=== PATIENT | female | born 1950 | race Caucasian/White ===

== ENCOUNTER 2016-10-26 08:49 | Day surgery (SDC) | payer BC ==
[~2016-10-26 08:49] MED LIST: RINGER'S SOLUTION,LACTATED 1,000 ML IV PRN
--- NOTE | 2016-10-26 10:49 | OR ---
Operative Report - Dictated Report Narrative: Date: 10/26/2016 Preop diagnosis: Screening colonoscopy Postop diagnosis: Sigmoid diverticulosis Procedure: Total colonoscopy Staff surgeon: Mode Gonzales MD Aneshtesia: JACQUE per FLA[employer] EBL: none Specimens: none Complications: none apparent Description: After informed consent and appropriate sedation the patient was placed in the left lateral decubitus position. A flexible fiberoptic video colonoscope was introduced and advanced under direct vision without difficulty to the mid- ascending colon. The usual landmarks were identified. Preparation was excellent and excellent views were obtained. The findings were of a normal cecum, ascending colon, hepatic flexure, transverse colon, splenic flexure, descending colon, sigmoid colon except for moderate diverticuli, rectum and retroflex view. The mucosal color, vasculature and texture were normal throughout. no suspicious masses were seen. The patient tolerated the procedure well without apparent complications and was discharged from the endoscopy suite in stable condition.
[2016-10-26 12:40] VITALS: BP 132/71
== END 2016-10-26 08:50 | disposition home or self-care (01) ==
LOC: AMB 08:49
PROVIDERS: ATTEND Specialist
PROC: 0DJD8ZZ Inspection of Lower Intestinal Tract, Via Natural or Artificial Opening Endoscopic (ICD-10-PCS; principal; 2016-10-26 09:50)
DX: Z12.11 Encounter for screening for malignant neoplasm of colon (principal); E78.5 Hyperlipidemia, unspecified; J45.30 Mild persistent asthma, uncomplicated; Z68.24 Body mass index [BMI] 24.0-24.9, adult

== ENCOUNTER 2016-12-13 11:30 | Day surgery (SDC) | payer BC ==
[~2016-12-13 11:30] MED LIST changes: +ACETAMINOPHEN 325 MG TABLET PO PRN; +ACETYLCHOLINE CHLORIDE 20 DROP KIT IO PRN; +BUPIVACAINE HCL/PF 30 ML VIAL IJ PRN; +CYCLOPENTOLATE HCL 20 DROP BTL LEFTEYE PRN; +DEXTROSE 5%-0.5 NORMAL SALINE 1,000 ML IV PRN; +EPINEPHrine 1 MG/ML AMPUL IO PRN; +HYALURONATE SODIUM 0.4 ML DISP.SYRIN IO PRN; +HYALURONATE SODIUM 0.85 ML DISP.SYRIN IO PRN; +LIDOCAINE HCL/PF 200 MG/5 ML AMPUL TP PRN; +LIDOCAINE HCL/PF 5 ML VIAL IO PRN; +NORMAL SALINE 3 ML BOX IV PRN; -RINGER'S SOLUTION,LACTATED 1,000 ML IV PRN; +TETRACAINE HCL 150 DROP BTL OP PRN
[2016-12-13] MEDS: PHENYLEPHRINE HCL 50 DROP BTL LEFTEYE PRN ×3 (12:08→12:30)
[2016-12-13] MEDS: TROPICAMIDE 150 DROP BTL LEFTEYE PRN ×3 (12:08→12:30)
[2016-12-13 15:01] VITALS: BP 135/80
== END 2016-12-13 11:31 | disposition home or self-care (01) ==
LOC: AMB 11:30
PROVIDERS: ATTEND Ophthalmology
PROC: 08RK3JZ Replacement of Left Lens with Synthetic Substitute, Percutaneous Approach (ICD-10-PCS; principal; 2016-12-13 12:45)
DX: H26.9 Unspecified cataract (principal); J45.30 Mild persistent asthma, uncomplicated; E78.5 Hyperlipidemia, unspecified; Z68.24 Body mass index [BMI] 24.0-24.9, adult

== ENCOUNTER 2016-12-27 11:40 | Day surgery (SDC) | payer BC ==
[~2016-12-27 11:40] MED LIST changes: -CYCLOPENTOLATE HCL 20 DROP BTL LEFTEYE PRN; +CYCLOPENTOLATE HCL 20 DROP BTL RIGHTEYE PRN; -HYALURONATE SODIUM 0.85 ML DISP.SYRIN IO PRN
[2016-12-27] MEDS: PHENYLEPHRINE HCL 50 DROP BTL RIGHTEYE PRN ×3 (12:24→13:45)
[2016-12-27] MEDS: TROPICAMIDE 150 DROP BTL RIGHTEYE PRN ×3 (12:24→13:45)
[2016-12-27] MEDS: HYALURONATE SODIUM 0.85 ML DISP.SYRIN IO PRN ×2 (14:12→14:25)
[2016-12-27 15:30] VITALS: BP 118/69
== END 2016-12-27 11:41 | disposition home or self-care (01) ==
LOC: AMB 11:40
PROVIDERS: ATTEND Ophthalmology
PROC: 08RJ3JZ Replacement of Right Lens with Synthetic Substitute, Percutaneous Approach (ICD-10-PCS; principal; 2016-12-27 12:40)
DX: H26.9 Unspecified cataract (principal); E78.5 Hyperlipidemia, unspecified; J45.30 Mild persistent asthma, uncomplicated; Z68.24 Body mass index [BMI] 24.0-24.9, adult